=== PATIENT | female | born 1975 | race American Indian/Alaskan Native ===

== ENCOUNTER 2017-03-11 11:19 | Day surgery (SDC) | payer MEDICARE ==
[2017-03-11] MEDS ORDERED: NACL 0.9% 1000 ML 1,000 ML IV SCH (12:00)
[2017-03-11] MEDS ORDERED: AMIDATE IV ONE ×2 (12:30→12:38)
[2017-03-11] MEDS ORDERED: WATER FOR IRRIG STERILE IR ONE (12:31)
--- NOTE | 2017-03-11 12:35 | Anesthesia Consultation ---
Anesthesia Consult and Med Hx Date of service: 03/11/17 - Airway Anesthetic Teeth Evaluation: Good (prominent teeth upper) ROM Head & Neck: Adequate Mental/Hyoid Distance: Adequate Mallampati Class: Class II Intubation Access Assessment: Probably Good - Pulmonary Exam CTA: Yes - Cardiac Exam Cardiac Exam: RRR - Pre-Operative Health Status ASA Pre-Surgery Classification: ASA3 Proposed Anesthetic Plan: MAC - Pulmonary Hx Smoking: No Hx Asthma: Yes Hx Sleep Apnea: No - Cardiovascular System Hx Hypertension: Yes (EF 45%, cardiomyopathy) Hx Heart Attack/AMI: Yes - Central Nervous System Hx Neuromuscular Disorder: Yes (LUPUS) CVA: Yes Hx Psychiatric Problems: Yes (depression) - Gastrointestinal Hx Gastroesophageal Reflux Disease: No - Endocrine Hx Renal Disease: No Hx Liver Disease: No Hx Insulin Dependent Diabetes: No - Hematic Hx Anemia: Yes Hx Sickle Cell Disease: No - Other Systems Hx Alcohol Use: No Hx Substance Use: No Hx Cancer: No Hx Obesity: No
--- NOTE | 2017-03-11 12:36 | Anesthesia Day of Surgery ---
Anesthesia Day of Surgery - Day of Surgery Patient Examined: Yes Patient H&P Reviewed: Yes Patient is NPO: Yes Beta Blockers: No Cardiac Clearance: Yes
[2017-03-11] MEDS ORDERED: DIPRIVAN 10 MG/ML IV ONE ×2 (12:37)
--- NOTE | 2017-03-11 12:55 | Post Operative Note ---
Pre-op diagnosis: abdominal pain, constipation Post-op diagnosis: other (poor prep throughout colon) Findings: poor prep (large amount of solid stool throughout colon). Procedure: Colonoscopy Anesthesia: MAC Surgeon: SHERIF VASQUEZ Estimated blood loss: none Pathology: none Condition: stable Disposition: same day
--- NOTE | 2017-03-11 12:59 | Operative Report ---
Operative Report Operative Report: Colonoscopy Procedure Report Date of procedure: 03/11/2017 Endoscopist: Bishop Stroud Pre-op diagnosis: abdominal pain, constipation Post-op diagnosis: poor prep throughout colon Anesthesia: MAC Complications: no immediate complications Estimated blood loss: none Procedure: After consent was obtained, the patient was placed in the left lateral decubitus position. The fujinon colonoscope was inserted into the rectum under direct vision and advanced to the suspected cecum (although unable to confirm due to large amount of solid stool in right side of colon preventing visualization of landmarks). The quality of prep was poor. The patient tolerated the procedure well. Findings: Poor prep throughout colon (large amount of solid stool throughout the colon, particularly in the right side). There was no obvious mucosal abnormalities or obvious obstructive process, although visualization was poor. Impression: 1. Poor prep throughout colon (large amount of brown stool). No obvious mucosal abnormalities in visualized portions of colon Recommendations: -bowel regimen daily -follow-up in GI clinic as scheduled -consider repeat colonoscopy based on symptoms/progress and with 2 day prep ( will discuss at clinic)
[2017-03-11] MEDS ORDERED: APRESOLINE IV ONE (13:20)
[2017-03-11] MEDS ORDERED: APRESOLINE ONE (13:23)
[2017-03-11 15:14] VITALS: BP 140/85
--- NOTE | 2017-03-11 21:00 | Post Anesthesia Evaluation ---
- Post Anesthesia Evaluation Patient Participated: Yes Airway Patent: Yes Stable Respiratory Function: Yes Nausea/Vomiting: No Temp > 96.8F: Yes Pain Manageable: Yes Adequeate Hydration: Yes Anesthesia Complications: No Block Receding Appropriately: Not Applicable Patient on Ventilator: No
== END 2017-03-11 11:20 | disposition home or self-care (01) ==
LOC: GIO 11:19
PROVIDERS: ATTEND Internal Medicine Gastroenterology
DX: K59.09 Other constipation (principal); M32.9 Systemic lupus erythematosus, unspecified; I25.10 Atherosclerotic heart disease of native coronary artery without angina pectoris; Z86.73 Personal history of transient ischemic attack (TIA), and cerebral infarction without residual deficits; J45.909 Unspecified asthma, uncomplicated; I10 Essential (primary) hypertension; I21.3 ST elevation (STEMI) myocardial infarction of unspecified site; I42.9 Cardiomyopathy, unspecified; F32.9 Major depressive disorder, single episode, unspecified; D64.9 Anemia, unspecified
CPT/HCPCS: 45378; J0360; J2704; J7030

== ENCOUNTER 2017-05-04 15:45 | Emergency (ER) | payer MEDICARE ==
[2017-05-04 17:54] LABS: Hematocrit 36.2 % (30.3-42.9); Hemoglobin 11.4 gm/dl (10.1-14.3); Mean Corpuscular HGB Conc 31 % (30-34); Red Blood Count 5.59 M/mm3 (3.65-5.03)
[2017-05-04 17:55] LABS: Basophils % (Auto) 0.6 % (0.0-1.8); Eosinophils % (Auto) 0.7 % (0.0-4.3); Lymphocytes # (Auto) 1.4 K/mm3 (1.2-5.4); Lymphocytes % (Auto) 43.1 % (13.4-35.0); Monocytes # (Auto) 0.3 K/mm3 (0.0-0.8); Monocytes % (Auto) 10.9 % (0.0-7.3); Platelet Count 202 K/mm3 (140-440)
[2017-05-04 17:56] LABS: Mean Corpuscular Hemoglobin 20 pg (28-32); Mean Corpuscular Volume 65 fl (79-97)
[2017-05-04 19:20] LABS: BUN/Creatinine Ratio 14; Blood Urea Nitrogen 7 mg/dL (7-17); Calcium 8.9 mg/dL (8.4-10.2); Hemolysis Index 3
[2017-05-04 23:41] VITALS: BP 164/104
[2017-05-04] MEDS ORDERED: TYLENOL ONE (23:45)
[2017-05-04] MEDS: ASPIRIN PO ONE ×2 (23:46→23:47)
== END 2017-05-04 21:30 | disposition left against medical advice (07) ==
LOC: ED 15:45
DX: T30.0 Burn of unspecified body region, unspecified degree (principal); Z53.21 Procedure and treatment not carried out due to patient leaving prior to being seen by health care provider
CPT/HCPCS: 36415; 80048; 84484; 85025; 93005; 93010

== ENCOUNTER 2018-02-26 10:18 | Emergency (ER) | payer MEDICARE ==
[2018-02-26] MEDS ORDERED: BENADRYL IV ONE (10:57)
[2018-02-26] MEDS ORDERED: MORPHINE IV ONE (10:57)
--- NOTE | 2018-02-26 11:08 | Emergency Department Report ---
Chief Complaint: High BP Stated Complaint: HBP Time Seen by Provider: 02/26/18 10:51 - HPI History of Present Illness: 42-year-old female presents to the emergency department from outpatient surgery for evaluation of uncontrolled and elevated blood pressure. The patient was having surgery done on her foot or her machine specialist when allegedly, intraoperatively, her blood pressure reached up to about systolic 230. She was given 5 mg of IV labetalol and it has come down some since. Since waking up from the surgery she complains of a severe headache. She has a past medical history of asthma, CVA, GERD, migraine headaches, coronary artery disease, myopathy, fibromyalgia and this hypertension. She says that her ground systems engineer, Dr. Chanel, has been trying to change her blood pressure medications recently. Her primary care physician is a Dr. Donohue. - PAOLA Review of Systems: Positive for headache, hypertension Negative for fever, chest pain, shortness of breath - Exam Vital Signs: Vital Signs 02/26/18 10:21 Temperature 97.8 F Pulse Rate 69 Respiratory 16 Rate Blood Pressure 184/118 O2 Sat by Pulse 100 Oximetry Physical Exam: Patient is awake and alert and does not appear in any acute distress. Pupils equal reactive to light bilaterally. Heart and lung sounds normal to auscultation. MSE screening note: Focused history and physical exam performed. Due to findings the following was ordered: I have ordered a CBC, BMP and a CT scan of the head without contrast. An IV will be placed and the patient will receive some morphine with Benadryl for her headache and will most likely need antihypertensive medication. The patient will be moved over to the main side of the emergency department as she is a level II and will need some monitoring. ED Disposition for MSE Condition: Stable
[2018-02-26 11:25] LABS: Basophils % (Auto) 1.1 % (0.0-1.8); Eosinophils % (Auto) 0.7 % (0.0-4.3); Hemoglobin 10.9 gm/dl (10.1-14.3); Lymphocytes # (Auto) 1.3 K/mm3 (1.2-5.4); Lymphocytes % (Auto) 50.5 % (13.4-35.0); Mean Corpuscular HGB Conc 31 % (30-34); Monocytes # (Auto) 0.3 K/mm3 (0.0-0.8); Monocytes % (Auto) 10.7 % (0.0-7.3); Platelet Count 196 K/mm3 (140-440); Red Blood Count 5.39 M/mm3 (3.65-5.03); Red Cell Distribution Width 15.6 % (13.2-15.2)
[2018-02-26 11:27] LABS: Mean Corpuscular Hemoglobin 20 pg (28-32); Mean Corpuscular Volume 65 fl (79-97)
[2018-02-26] MEDS ORDERED: APRESOLINE IV ONE (11:31)
--- NOTE | 2018-02-26 11:31 | Emergency Department Report ---
ED General Adult HPI - General Chief complaint: High BP Stated complaint: HBP Time Seen by Provider: 02/26/18 10:51 Source: patient Mode of arrival: Wheelchair Limitations: No Limitations - History of Present Illness Initial comments: 42-year-old female with history of hypertension and presents to ED for elevated blood pressure. Patient underwent bunion surgery today. States was told her blood pressure was elevated before, during, and after the procedure. Patient was advised to come to the ER for blood pressure control. The patient states she has been under the care of her special education para professional, Dr Chanel, who has been trying to optimize her BP meds. Patient states over the last month, she has been checking her blood pressure at home, and her systolic BP is consistently in the 200s. Patient reports she has also been having headaches as well, which she attributes to the hypertension. Patient currently on verapamil, hydralazine, tamsulosin. Pairing Machine Operator: Dr Chanel -: week(s) (4) Location: head Consistency: intermittent Improves with: none Worsens with: none Associated Symptoms: headaches. denies: chest pain, nausea/vomiting, shortness of breath Treatments Prior to Arrival: other (Labetalol 5 mg) - Related Data Home Medications Medication Instructions Recorded Confirmed Last Taken Albuterol *Only Ed* [Proventil 2 puff IH PRN PRN 09/06/13 03/11/17 03/09/14 0.5% NEBS] Hydroxychloroquine [Plaquenil] 1 tab PO BID 09/06/13 03/11/17 03/09/14 Metoclopramide HCl [Reglan] 1 tab PO DAILY 09/06/13 03/11/17 03/10/17 Zolpidem [Ambien] 1 tab PO QHS 09/06/13 03/11/17 02/18/17 traMADol [Ultram 50 MG tab] 1 tab PO Q6H PRN 09/06/13 03/11/17 03/05/17 Clopidogrel [Plavix] 75 mg PO QDAY 03/10/14 03/11/17 03/04/17 Hydroxychloroquine [Plaquenil] 200 mg PO QDAY 03/10/14 03/11/17 03/09/14 Cimetidine 300 mg PO DAILY 03/11/17 03/11/17 03/10/17 Clobetasol 0.05% 0.5 mg PO DAILY 03/11/17 03/11/17 03/11/17 Doxazosin 4 mg PO HS 03/11/17 03/11/17 03/10/17 Nitroglycerin Patch 0.2 mg TRANSDERMA PRN PRN 03/11/17 03/11/17 Unknown ProAir HFA Inhaler 8.5 mg INHALATION DAILY 03/11/17 03/11/17 03/10/17 Valsartan 320 mg PO DAILY 03/11/17 03/11/17 03/11/17 Verapamil 120 mg PO BID 03/11/17 03/11/17 03/10/17 Xanax 0.2 mg PO Q8H 03/11/17 03/11/17 03/10/17 Zanaflex 4 mg PO HS 03/11/17 03/11/17 03/10/17 busPIRone 7.5 mg PO DAILY 03/11/17 03/11/17 03/04/17 predniSONE [Deltasone] 10 mg PO QDAY 03/11/17 03/11/17 03/10/17 Previous Rx's Medication Instructions Recorded Last Taken Type HYDROcodone/APAP 10-325 [[place] 1 each PO Q4-6H PRN #16 tablet 09/06/13 03/09/14 Rx 10-325 mg TAB] Promethazine [Phenergan] 25 mg PO Q6H PRN #12 tablet 09/06/13 03/09/14 Rx Lisinopril [Zestril TAB] 20 mg PO QDAY #60 tablet 03/10/14 Unknown Rx amLODIPine [Norvasc] 10 mg PO DAILY #30 tab 03/10/14 Unknown Rx oxyCODONE /ACETAMINOPHEN [Percocet 1 tab PO Q6HR PRN #15 tablet 03/10/14 Unknown Rx 5/325] Butalb/Acetamin/Caff 50-325-40 1 each PO Q4H PRN #20 tablet 05/11/16 Unknown Rx [Fioricet] Allergies Allergy/AdvReac Type Severity Reaction Status Date / Time banana Allergy Hives, Verified 05/11/16 01:47 STOMACH ACHE codeine Allergy Rash Verified 09/15/15 12:17 ibandronate sodium Allergy Rash Verified 05/11/16 01:47 [From Boniva] Iodinated Contrast- Oral and Allergy Itching,WHE Verified 05/11/16 01:47 IV Dye LPS [Iodinated Contrast Media - IV Dye] tramadol Allergy Itching,WHELPS Verified 05/11/16 01:47 DIFFICULTY IN BREATHING wheat Allergy Itching,HILDA Verified 05/11/16 01:47 H ALL BERRIES Allergy Severe SEVERE Uncoded 04/24/15 09:30 REACTION NEED A EPIE SHOT SEAFOOD Allergy Severe BODY ACHE Uncoded 04/24/15 09:30 ALL NUTS AdvReac Severe HIVES, Uncoded 04/24/15 09:33 ITCHING ,RASH ED Review of Systems ROS: Stated complaint: HBP Other details as noted in HPI Comment: All other systems reviewed and negative Respiratory: denies: shortness of breath Cardiovascular: denies: chest pain Gastrointestinal: denies: nausea, vomiting Neurological: headache. denies: weakness, numbness ED Past Medical Hx - Past Medical History Hx Hypertension: Yes (EF 45%, cardiomyopathy) Hx CVA: Yes (5 years ago) Hx Heart Attack/AMI: Yes Hx GERD: Yes Hx Liver Disease: No Hx Renal Disease: No Hx Sickle Cell Disease: No Hx Arthritis: Yes Hx Headaches / Migraines: Yes Hx Asthma: Yes Additional medical history: fibromyalgia, SLE, osteoporosis, restless legs syndrome - Surgical History Additional Surgical History: tubal ligation, hysterectomy, 2 knee surgeries, cardiac cath x2 - Social History Smoking Status: Never Smoker Substance Use Type: Alcohol - Medications Home Medications: Home Medications Medication Instructions Recorded Confirmed Last Taken Type Albuterol *Only Ed* [Proventil 2 puff IH PRN PRN 09/06/13 03/11/17 03/09/14 History 0.5% NEBS] HYDROcodone/APAP 10-325 [[place] 1 each PO Q4-6H PRN #16 tablet 09/06/13 03/11/17 03/09/14 Rx 10-325 mg TAB] Hydroxychloroquine [Plaquenil] 1 tab PO BID 09/06/13 03/11/17 03/09/14 History Metoclopramide HCl [Reglan] 1 tab PO DAILY 09/06/13 03/11/17 03/10/17 History Promethazine [Phenergan] 25 mg PO Q6H PRN #12 tablet 09/06/13 03/11/17 03/09/14 Rx Zolpidem [Ambien] 1 tab PO QHS 09/06/13 03/11/17 02/18/17 History traMADol [Ultram 50 MG tab] 1 tab PO Q6H PRN 09/06/13 03/11/17 03/05/17 History Clopidogrel [Plavix] 75 mg PO QDAY 03/10/14 03/11/17 03/04/17 History Hydroxychloroquine [Plaquenil] 200 mg PO QDAY 03/10/14 03/11/17 03/09/14 History Lisinopril [Zestril TAB] 20 mg PO QDAY #60 tablet 03/10/14 03/11/17 Unknown Rx amLODIPine [Norvasc] 10 mg PO DAILY #30 tab 03/10/14 03/11/17 Unknown Rx oxyCODONE /ACETAMINOPHEN [Percocet 1 tab PO Q6HR PRN #15 tablet 03/10/14 03/11/17 Unknown Rx 5/325] Butalb/Acetamin/Caff 50-325-40 1 each PO Q4H PRN #20 tablet 05/11/16 03/11/17 Unknown Rx [Fioricet] Cimetidine 300 mg PO DAILY 03/11/17 03/11/17 03/10/17 History Clobetasol 0.05% 0.5 mg PO DAILY 03/11/17 03/11/17 03/11/17 History Doxazosin 4 mg PO HS 03/11/17 03/11/17 03/10/17 History Nitroglycerin Patch 0.2 mg TRANSDERMA PRN PRN 03/11/17 03/11/17 Unknown History ProAir HFA Inhaler 8.5 mg INHALATION DAILY 03/11/17 03/11/17 03/10/17 History Valsartan 320 mg PO DAILY 03/11/17 03/11/17 03/11/17 History Verapamil 120 mg PO BID 03/11/17 03/11/17 03/10/17 History Xanax 0.2 mg PO Q8H 03/11/17 03/11/17 03/10/17 History Zanaflex 4 mg PO HS 03/11/17 03/11/17 03/10/17 History busPIRone 7.5 mg PO DAILY 03/11/17 03/11/1703/04/18 History predniSONE [Deltasone] 10 mg PO QDAY 03/11/17 03/11/17 03/10/17 History ED Physical Exam - General Limitations: No Limitations General appearance: alert, in no apparent distress - Head Head exam: Present: atraumatic, normocephalic - Eye Eye exam: Present: normal appearance - ENT ENT exam: Present: mucous membranes moist - Neck Neck exam: Present: normal inspection - Respiratory Respiratory exam: Present: normal lung sounds bilaterally. Absent: respiratory distress - Cardiovascular Cardiovascular Exam: Present: regular rate, normal rhythm - GI/Abdominal GI/Abdominal exam: Present: soft. Absent: distended, tenderness - Extremities Exam Extremities exam: Present: other (right foot in dressings) - Neurological Exam Neurological exam: Present: alert, oriented X3, CN II-XII intact. Absent: motor sensory deficit - Psychiatric Psychiatric exam: Present: normal affect, normal mood - Skin Skin exam: Present: warm, dry, intact, normal color ED Course Vital Signs 02/26/18 02/26/18 02/26/18 10:21 11:29 11:31 Temperature 97.8 F 98.2 F Pulse Rate 69 89 Respiratory 16 14 14 Rate Blood Pressure 184/118 Blood Pressure 191/128 [Left] O2 Sat by Pulse 100 99 99 Oximetry 02/26/18 12:03 Temperature Pulse Rate Respiratory Rate Blood Pressure Blood Pressure 162/105 [Left] O2 Sat by Pulse Oximetry - Consultations Consultation #1: 02/26/18 13:09 Spoke w/ JER Christie for Dr Moe. States pt can f/u as an outpt. Will call her to schedule an appt. ED Medical Decision Making - Lab Data Result diagrams: 02/26/18 11:07 02/26/18 11:01 - Radiology Data Radiology results: report reviewed, image reviewed - Medical Decision Making [id number] female with uncontrolled hypertension for approximately one month now. Patient sent here from outpatient surgery clinic following bunion surgery on her foot. Blood pressure is elevated here in the ED. She states is under the care of her special education para professional who has been trying different therapies to optimize her blood pressure management. States systolic BP has been in the 200s last 3-4 weeks. One dose of IV hydralazine given here in the ED. Systolic BP came down to the 160s. Spoke with cardiology JER no need for admission, will have patient follow-up in the office. Patient given return precautions. Will discharge at this time - Differential Diagnosis essential HTN, ICH, HTN emergency Critical care attestation.: If time is entered above; I have spent that time in minutes in the direct care of this critically ill patient, excluding procedure time. ED Disposition Clinical Impression: Essential hypertension Disposition: DC-01 TO HOME OR SELFCARE Is pt being admited?: No Condition: Stable Instructions: Hypertension (ED) Referrals: GIOVANA CHANEL MD [Staff Physician] - 3-5 Days Time of Disposition: 13:40
[2018-02-26 11:36] LABS: BUN/Creatinine Ratio 18; Blood Urea Nitrogen 7 mg/dL (7-17); Calcium 8.8 mg/dL (8.4-10.2); Hemolysis Index 7
[2018-02-26 12:03] VITALS: BP 162/105
--- NOTE | 2018-02-26 13:28 | Cat Scan Report ---
FINAL REPORT EXAM: CT HEAD/BRAIN WO CON HISTORY: hypertension with headache TECHNIQUE: CT of the head was performed without intravenous contrast. PRIORS: 05/10/2016. FINDINGS: The ventricles are normal in shape and position. The ventricles are nondilated. No intracranial hemo rrhage, mass, mass effect, midline shift or evidence of acute ischemic infarct. The basilar cisterns are patent. The paranasal sinuses are clear. The extracranial soft tissues demonstrate no abnormality. The calvar ium is intact. The orbits are intact. The mastoid air cells are clear. IMPRESSION: No acute intracranial abnormality.
[2018-02-26] MEDS ORDERED: MOTRIN ONE (13:52)
[2018-02-26] MEDS ORDERED: MOTRIN PO ONE (13:57)
== END 2018-02-26 14:33 | disposition home or self-care (01) ==
LOC: ED 10:18
DX: I11.0 Hypertensive heart disease with heart failure (principal); I42.9 Cardiomyopathy, unspecified; K21.9 Gastro-esophageal reflux disease without esophagitis; J45.909 Unspecified asthma, uncomplicated; M19.90 Unspecified osteoarthritis, unspecified site; M79.7 Fibromyalgia; M32.9 Systemic lupus erythematosus, unspecified; Z98.51 Tubal ligation status; Z88.5 Allergy status to narcotic agent; Z91.018 Allergy to other foods; Z88.8 Allergy status to other drugs, medicaments and biological substances; Z91.010 Allergy to peanuts; Z91.013 Allergy to seafood; Z90.710 Acquired absence of both cervix and uterus
CPT/HCPCS: 36415; 70450; 80048; 85025; 96374; 96375; 99284; J0360; J1200; J2270

== ENCOUNTER 2018-11-17 09:34 | Emergency (ER) | payer MEDICARE ==
[2018-11-17 12:13] VITALS: BP 192/120
--- NOTE | 2018-11-17 12:32 | Magnetic Resonance Report ---
MRI BRAIN and IACs with without IV contrast. INDICATION / CLINICAL INFORMATION: H93.13)Tinnitus, bilateral. TECHNIQUE: Multiplanar, multisequence MR images of the brain were obtained. COMPARISON: None available. FINDINGS: MRI IACs: No enhancing lesions are identified within the internal auditory canals or CPA cisterns. Th e inner ear structures grossly demonstrate appropriate fluid signal intensity. The 7th and 8th nerve complexes are unremarkable on the axial 3-D fiesta imaging. The mastoid air cells are clear. BRAIN / INTRACRANIAL CONTENTS: There is irregularity involving medial parieto-occipital regions of bi laterally with mild surrounding increased FLAIR signal, slightly greater on the left at. This finding may reflect developmental anomaly or possibly chronic ischemic changes of the bilaterality would be atypical there is mild prominence of the CSF signal and sulci within this region. There is no clear e vidence of dilated of vessels on the axial T2-weighted sequence. The diffusion imaging is unremarkabl e without evidence of acute infarction. The brain otherwise appears to demonstrate appropriate signal characteristics. The ventricular system is within normal limits in size and configuration. No extra-axial fluid collections are identified. CRANIOCERVICAL JUNCTION: No significant abnormality. VASCULAR FLOW-VOIDS: No significant abnormality. ORBITS: No significant abnormality of visualized orbits. SINUSES / MASTOIDS: No significant abnormality of the visualized paranasal sinuses or mastoid air jaymie ls. ADDITIONAL FINDINGS: None. IMPRESSION: 1. There is focal irregularity involving the medial parieto-occipital regions bilaterally as detailed above which appears chronic and may be developmental. 2. The MRI the brain is otherwise unremarkable; specifically, no enhancing lesions are seen within th e internal auditory canals. Signer Name: Nate Valera MD Signed: 11/17/2018 12:28 PM Workstation Name: [id number]
[2018-11-17] MEDS ORDERED: DECADRON ONE (12:40)
[2018-11-17] MEDS ORDERED: BENADRYL ONE (12:40)
[2018-11-17] MEDS ORDERED: PEPCID IV ONE (12:41)
[2018-11-17] MEDS ORDERED: BENADRYL IV ONE (12:41)
[2018-11-17] MEDS ORDERED: DECADRON IV ONE (12:41)
[2018-11-17] MEDS ORDERED: ZOFRAN IV ONE (13:22)
--- NOTE | 2018-11-17 14:09 | Emergency Department Report ---
ED General Adult HPI - General Chief complaint: Allergic Reaction Time Seen by Provider: 11/17/18 12:29 Source: patient Mode of arrival: Stretcher Limitations: No Limitations - History of Present Illness Initial comments: This 43-year-old female that had an apparent allergic reaction after receiving MR contrast material. Patient tells me that she had a reaction to contrast mate rial in the past. She felt generalized itching and a sensation like she could not clear her throat or "get anything up". She didn't have visual hives nor apparent angioedema. She is not complaining of dyspnea. She did have some nausea. -: Gradual Consistency: constant (itching) Improves with: none Worsens with: none Associated Symptoms: denies other symptoms Treatments Prior to Arrival: none - Related Data Home Medications Medication Instructions Recorded Confirmed Last Taken Albuterol *Only Ed* [Proventil 2 puff IH PRN PRN 09/06/13 03/11/17 03/09/14 0.5% NEBS] Hydroxychloroquine [Plaquenil] 1 tab PO BID 09/06/13 03/11/17 03/09/14 Metoclopramide HCl [Reglan] 1 tab PO DAILY 09/06/13 03/11/17 03/10/17 Zolpidem [Ambien] 1 tab PO QHS 09/06/13 03/11/17 02/18/17 traMADol [Ultram 50 MG tab] 1 tab PO Q6H PRN 09/06/13 03/11/17 03/05/17 Clopidogrel [Plavix] 75 mg PO QDAY 03/10/14 03/11/17 03/04/17 Hydroxychloroquine [Plaquenil] 200 mg PO QDAY 03/10/14 03/11/17 03/09/14 Cimetidine 300 mg PO DAILY 03/11/17 03/11/17 03/10/17 Clobetasol 0.05% 0.5 mg PO DAILY 03/11/17 03/11/17 03/11/17 Doxazosin 4 mg PO HS 03/11/17 03/11/17 03/10/17 Nitroglycerin Patch 0.2 mg TRANSDERMA PRN PRN 03/11/17 03/11/17 Unknown ProAir HFA Inhaler 8.5 mg INHALATION DAILY 03/11/17 03/11/17 03/10/17 Valsartan 320 mg PO DAILY 03/11/17 03/11/17 03/11/17 Verapamil 120 mg PO BID 03/11/17 03/11/17 03/10/17 Xanax 0.2 mg PO Q8H 03/11/17 03/11/17 03/10/17 Zanaflex 4 mg PO HS 03/11/17 03/11/17 03/10/17 busPIRone 7.5 mg PO DAILY 03/11/17 03/11/17 03/04/17 predniSONE [Deltasone] 10 mg PO QDAY 03/11/17 03/11/17 03/10/17 Previous Rx's Medication Instructions Recorded Last Taken Type HYDROcodone/APAP 10-325 [Pendroy 1 each PO Q4-6H PRN #16 tablet 09/06/13 03/09/14 Rx 10-325 mg TAB] Promethazine [Phenergan] 25 mg PO Q6H PRN #12 tablet 09/06/13 03/09/14 Rx Lisinopril [Zestril TAB] 20 mg PO QDAY #60 tablet 03/10/14 Unknown Rx amLODIPine [Norvasc] 10 mg PO DAILY #30 tab 03/10/14 Unknown Rx oxyCODONE /ACETAMINOPHEN [Percocet 1 tab PO Q6HR PRN #15 tablet 03/10/14 Unknown Rx 5/325] Butalb/Acetamin/Caff 50-325-40 1 each PO Q4H PRN #20 tablet 05/11/16 Unknown Rx [Fioricet] Allergies Allergy/AdvReac Type Severity Reaction Status Date / Time banana Allergy Hives, Verified 05/11/16 01:47 STOMACH ACHE codeine Allergy Rash Verified 09/15/15 12:17 ibandronate sodium Allergy Rash Verified 05/11/16 01:47 [From Boniva] Iodinated Contrast Media Allergy Itching,WHE Verified 05/11/16 01:47 [Iodinated Contrast Media - LPS IV Dye] tramadol Allergy Itching,WHELPS Verified 05/11/16 01:47 DIFFICULTY IN BREATHING wheat Allergy Itching,HILDA Verified 05/11/16 01:47 H ALL BERRIES Allergy Severe SEVERE Uncoded 04/24/15 09:30 REACTION NEED A EPIE SHOT SEAFOOD Allergy Severe BODY ACHE Uncoded 04/24/15 09:30 ALL NUTS AdvReac Severe HIVES, Uncoded 04/24/15 09:33 ITCHING ,RASH ED Review of Systems ROS: Stated complaint: Other details as noted in HPI Constitutional: denies: chills, fever Eyes: denies: eye pain, eye discharge, vision change ENT: denies: ear pain, throat pain Respiratory: denies: cough, shortness of breath, wheezing Cardiovascular: denies: chest pain, palpitations Endocrine: no symptoms reported Gastrointestinal: denies: abdominal pain, nausea, diarrhea Genitourinary: denies: urgency, dysuria, discharge Musculoskeletal: denies: back pain, joint swelling, arthralgia Skin: as per HPI. denies: rash, lesions Neurological: headache (apparently chronic headaches obtaining MR study thereof.). denies: weakness, paresthesias Psychiatric: denies: anxiety, depression Hematological/Lymphatic: other. denies: easy bleeding, easy bruising ED Past Medical Hx - Past Medical History Hx Hypertension: Yes (EF 45%, cardiomyopathy) Hx CVA: Yes (5 years ago) Hx Heart Attack/AMI: Yes Hx GERD: Yes Hx Liver Disease: No Hx Renal Disease: No Hx Sickle Cell Disease: No Hx Arthritis: Yes Hx Headaches / Migraines: Yes Hx Asthma: Yes Additional medical history: fibromyalgia, SLE, osteoporosis, restless legs syndrome - Surgical History Past Surgical History?: Yes Additional Surgical History: tubal ligation, hysterectomy, 2 knee surgeries, cardiac cath x2, bilateral foot surgeries - Social History Smoking Status: Never Smoker Substance Use Type: None - Medications Home Medications: Home Medications Medication Instructions Recorded Confirmed Last Taken Type Albuterol *Only Ed* [Proventil 2 puff IH PRN PRN 09/06/13 03/11/17 03/09/14 History 0.5% NEBS] HYDROcodone/APAP 10-325 [Pendroy 1 each PO Q4-6H PRN #16 tablet 09/06/13 03/11/17 03/09/14 Rx 10-325 mg TAB] Hydroxychloroquine [Plaquenil] 1 tab PO BID 09/06/13 03/11/17 03/09/14 History Metoclopramide HCl [Reglan] 1 tab PO DAILY 09/06/13 03/11/17 03/10/17 History Promethazine [Phenergan] 25 mg PO Q6H PRN #12 tablet 09/06/13 03/11/17 03/09/14 Rx Zolpidem [Ambien] 1 tab PO QHS 09/06/13 03/11/17 02/18/17 History traMADol [Ultram 50 MG tab] 1 tab PO Q6H PRN 09/06/13 03/11/17 03/05/17 History Clopidogrel [Plavix] 75 mg PO QDAY 03/10/14 03/11/17 03/04/17 History Hydroxychloroquine [Plaquenil] 200 mg PO QDAY 03/10/14 03/11/17 03/09/14 History Lisinopril [Zestril TAB] 20 mg PO QDAY #60 tablet 03/10/14 03/11/17 Unknown Rx amLODIPine [Norvasc] 10 mg PO DAILY #30 tab 03/10/14 03/11/17 Unknown Rx oxyCODONE /ACETAMINOPHEN [Percocet 1 tab PO Q6HR PRN #15 tablet 03/10/14 03/11/17 Unknown Rx 5/325] Butalb/Acetamin/Caff 50-325-40 1 each PO Q4H PRN #20 tablet 05/11/16 03/11/17 Unknown Rx [Fioricet] Cimetidine 300 mg PO DAILY 03/11/17 03/11/17 03/10/17 History Clobetasol 0.05% 0.5 mg PO DAILY 03/11/17 03/11/17 03/11/17 History Doxazosin 4 mg PO HS 03/11/17 03/11/17 03/10/17 History Nitroglycerin Patch 0.2 mg TRANSDERMA PRN PRN 03/11/17 03/11/17 Unknown History ProAir HFA Inhaler 8.5 mg INHALATION DAILY 03/11/17 03/11/17 03/10/17 History Valsartan 320 mg PO DAILY 03/11/17 03/11/17 03/11/17 History Verapamil 120 mg PO BID 03/11/17 03/11/17 03/10/17 History Xanax 0.2 mg PO Q8H 03/11/17 03/11/17 03/10/17 History Zanaflex 4 mg PO HS 03/11/17 03/11/17 03/10/17 History busPIRone 7.5 mg PO DAILY 03/11/17 03/11/17 03/04/17 History predniSONE [Deltasone] 10 mg PO QDAY 03/11/17 03/11/17 03/10/17 History ED Physical Exam - General Limitations: No Limitations, Other (apparent pruritus) General appearance: alert, in no apparent distress - Head Head exam: Present: atraumatic, normocephalic - Eye Eye exam: Present: normal appearance. Absent: scleral icterus - ENT ENT exam: Present: normal exam, normal orophraynx, mucous membranes moist - Neck Neck exam: Present: normal inspection, other (no angioedema). Absent: tenderness, meningismus - Respiratory Respiratory exam: Present: normal lung sounds bilaterally. Absent: respiratory distress - Cardiovascular Cardiovascular Exam: Present: regular rate, normal rhythm. Absent: systolic murmur, diastolic murmur, rubs, gallop - GI/Abdominal GI/Abdominal exam: Present: soft, normal bowel sounds. Absent: distended, tenderness, guarding, rebound - Extremities Exam Extremities exam: Present: normal inspection - Back Exam Back exam: Present: normal inspection - Neurological Exam Neurological exam: Present: alert, oriented X3, CN II-XII intact. Absent: motor sensory deficit - Psychiatric Psychiatric exam: Present: normal affect, normal mood - Skin Skin exam: Present: warm, dry, intact, normal color. Absent: rash ED Course Vital Signs 11/17/18 11/17/18 12:02 12:13 Temperature 97.9 F 97.9 F Pulse Rate 69 69 Respiratory 20 20 Rate Blood Pressure 192/120 192/120 [Left] O2 Sat by Pulse 100 100 Oximetry - Reevaluation(s) Reevaluation #1: Symptoms resolved in the emergency department. Patient requesting discharge. 11/17/18 14:07 Critical care attestation.: If time is entered above; I have spent that time in minutes in the direct care of this critically ill patient, excluding procedure time. ED Disposition Clinical Impression: Allergic reaction Qualifiers: Encounter type: initial encounter Qualified Code(s): T78.40XA - Allergy, unspecified, initial encounter Disposition: - TO HOME OR SELFCARE Is pt being admited?: No Does the pt Need Aspirin: No Condition: Stable Instructions: Anaphylaxis (ED), Allergies (ED) Additional Instructions: Benadryl [id number] every 6 hours for the next 24 hours then when necessary. Follow-up with your primary care physician. Avoid contrast medium was in the future unless cleared by an fine wire drawer or premedicated. Referrals: FLORENTIN PICKETT MD [Primary Care Provider] - 3-5 Days Time of Disposition: 14:08
== END 2018-11-17 14:27 | disposition home or self-care (01) ==
LOC: ED 09:34 → MRI 09:34 → EDSTATUS 10:00 → ED 14:27
DX: T78.40XA Allergy, unspecified, initial encounter (principal); I11.0 Hypertensive heart disease with heart failure; I50.9 Heart failure, unspecified; K21.9 Gastro-esophageal reflux disease without esophagitis; M19.90 Unspecified osteoarthritis, unspecified site; G43.909 Migraine, unspecified, not intractable, without status migrainosus; Z98.51 Tubal ligation status; Z90.710 Acquired absence of both cervix and uterus; Z98.890 Other specified postprocedural states; Z79.899 Other long term (current) drug therapy; Z91.013 Allergy to seafood; Z88.6 Allergy status to analgesic agent; Z91.041 Radiographic dye allergy status
CPT/HCPCS: 70553; 96374; 96375; 99283; J1100; J1200; J2405